=== PATIENT | female | born 2000 | race Caucasian/White ===

== ENCOUNTER 2022-11-15 07:02 | Outpatient (CLI) | payer OTHER | END 2022-11-15 07:03 | disposition home or self-care (01) | LOC: BICCT 07:02 | PROVIDERS: ATTEND Internal Medicine | DX: R10.9 Unspecified abdominal pain (principal) | CPT/HCPCS: 74177 ==

== ENCOUNTER 2023-05-09 13:35 | Outpatient (CLI) | payer OTHER | END 2023-05-09 13:36 | disposition home or self-care (01) | LOC: RAD 13:35 | PROVIDERS: ATTEND Internal Medicine | DX: R06.00 Dyspnea, unspecified (principal) | CPT/HCPCS: 71046 ==